=== PATIENT | female | born 1990 | race Caucasian/White ===

== ENCOUNTER 2021-12-21 15:21 | Emergency (ER) | payer MEDICAID, SELFPAY ==
[2021-12-21 15:40] VITALS: BP 101/69; PULSE 114; RESP 20; TEMP 37.1; O2SAT 97; BMI 35.5
[2021-12-21 15:52] VITALS: BP 101/69; PULSE 114; RESP 20; TEMP 37.1; O2SAT 97
--- NOTE | 2021-12-21 15:54 | HMH.EDUTC ---
[facility] Disposition Clinical Impression: Exposure to COVID-19 virus, Viral upper respiratory tract infection Disposition: Home, Self-Care Condition on Discharge: Good Instructions: DI for COVID-19 (Suspected or Confirmed ), Preventing the Spread of Coronavirus Discharge Instructions Additional Instructions: *Monitor Temp, Over the counter Motrin or Tylenol as directed/as needed Tylenol every 4 hours and Motrin every 6 hours (as long as your family doctor has told you that you can take it) for fever or pain. and straight to ER if unable to lower temp less than 101.0 after medication given *Warm salt water gargles may help to soothe the throat *Throat Lozenges *Warm fluids like tea with honey may help to soothe the throat *Sleep elevated *Humidifier/Vaporizer Follow up IMMEDIATELY for new or worsening symptoms or no Noticeable improvement over the next 48-72 hours. 911 for difficulty breathing or swallowing You were tested for today for COVID19 your test result should be back in the next 24-48 hours, you may Check your results on the [facility] My Health portal Make sure to take your Vitamins Vit. C Vit D and Zinc if you can take them Referrals: Justin Claire MD [Primary Care Provider] - As needed Forms: Work/School Release Time of Disposition: 15:59 Medical Decision Making - Kenneth Inquiry Pt receiving controlled substance: No Kenneth was queried for this patient: No Vital Signs: 12/21/21 15:40 12/21/21 15:52 Temperature 98.7 F 98.7 F Temperature Source Oral Pulse Rate 114 H Pulse Rate [Left Brachial] 114 H Respiratory Rate 20 20 Blood Pressure 101/69 L Blood Pressure [Left Arm] 101/69 L Blood Pressure Mean [Left Arm] 79 Blood Pressure Source [Left Arm] Automatic Cuff Blood Pressure Position [Left Arm] Sitting 02 Sat by Pulse Oximetry 97 Oxygen Delivery Method Room Air Orders (Tests/Meds): ORDERS Category Date Time Status Covid-19 Nasal PCR ([facility]) Routine Lab 12/21/21 15:35 Received [facility] HPI - General Stated complaint: exposed, covid test, cough,BLUM Time Seen by Provider: 12/21/21 15:54 Mode of Arrival: Ambulatory Source of Information: Patient Limitations: No Limitations Description of Symptoms (Recalled from Triage Doc. by RN): PATIENT C/O COUGH, HEADACHE, AND SOA X 1 WEEK. RECENTLY EXPOSED TO COVID HEENT Symptoms (Recalled from RN notes): Yes Resp Symptoms (Recalled from RN notes): Yes Skin Symptoms (Recalled from RN notes): No MS Symptoms (Recalled from RN notes): No Functional Status (Recalled from RN notes): WNL - History of Present Illness Provider Complaint: Patient states that two of her children tested positive for COVID on the 2nd and her grandmother tested positive last night states that for the last week on and off she would have bodyaches and not feel well but last night she started feeling achy all over, cough, and not able to breath out of her nose States that she wanted to get tested for COVID to see if she has it now too - Related Data Home Medications Medication Instructions Recorded Confirmed Fluoxetine HCl [Prozac] 30 mg PO DAILY 05/15/19 05/15/19 sulfamethoxazole 800 PO 06/11/19 mg-trimethoprim 160 mg tablet Previous Rx's Medication Instructions Recorded Ketorolac Tromethamine [Toradol 10 mg PO Q6H 5 Days #20 tab 05/15/19 10mg tablet] Allergies Allergy/AdvReac Type Severity Reaction Status Date / Time amoxicillin [AMOXICILLIN] Allergy Mild Verified 06/11/19 14:02 ceftriaxone [From ROCEPHIN] Allergy Mild Verified 06/11/19 14:02 cephalexin [From KEFLEX] Allergy Mild Verified 06/11/19 14:02 DEPRESSION MEDICATION Allergy Unknown I-HIVES Uncoded 06/11/19 14:02 - Worker's Comp Is this a Worker's Comp case?: No [facility] History - Hepatitis A Screen Attestation statement:: This patient has been screened for Hepatitis A risk factors. I have reviewed the patient's past medical history: Yes Medical History: Reports::
== END 2021-12-21 16:05 | disposition home or self-care (01) ==
PROVIDERS: Emergency Provider Nurse Practitioner; PCP Family Medicine
DX: J06.9 Acute upper respiratory infection, unspecified (principal); Z20.822 Contact with and (suspected) exposure to COVID-19
CPT/HCPCS: 99212; C9803; G0463; U0003; U0005

== ENCOUNTER 2024-05-16 20:04 | Emergency (ER) | payer MEDICAID, SELFPAY ==
[2024-05-16 20:05] VITALS: BP 149/73; PULSE 114; RESP 16; TEMP 36.6; O2SAT 100; BMI 40.2
--- NOTE | 2024-05-16 20:08 | HMH.EDGENADL ---
Discharge Plan Disposition Patient Disposition: Home, Self-Care Condition: Good Prescriptions Prescriptions: New lidocaine 5 % adhesive patch,medicated 1 patch topical DAILY Qty: 30 0RF Rx Instructions: leave on most painful area for up to 12 hrs methocarbamol 750 mg tablet 750 mg PO Q6H PRN (Reason: muscle spasm) Qty: 20 0RF prednisone 50 mg tablet 50 mg PO DAILY 5 Days Qty: 5 0RF No Action fluoxetine 20 MG capsule 30 mg PO DAILY ketorolac 10 MG tablet 10 mg PO Q6H 5 Days Qty: 20 0RF Referrals Follow up/Referrals: Donald Cervantes, PT [Physical Therapist] - See instructions (Sciatica) Paul Han [Primary Care Provider] - See instructions Activity Restrictions/Add. Instructions Additional Instructions/Restrictions: I sent medication to your pharmacy I do not know if it will be open tomorrow but should be available on Wednesday. I have also referred you to physical therapy. Please call on Wednesday to make an appointment. Follow-up with your PCP if you have no improvement change or worsening signs or symptoms or return to the ER as needed. Clinical Impressions Clinical Impression: Sciatica Qualifiers: Laterality: right Qualified Code(s): M54.31 - Sciatica, right side Instructions Patient Instructions: DI for Back Pain With Sciatica Print Language Print Language: [place] Discharge ED Provider: Roe Kendrick General Adult HPI <HARRY Morillo - Last Filed: 05/16/24 20:31> General Chief complaint: Back Pain/Injury Stated complaint: radiating lower back pain soa Time Seen by Provider: 05/16/24 20:08 History of Present Illness HPI narrative: Patient presents for evaluation of low back pain. Patient states that she began having atraumatic back pain when she woke up 3 days ago. It is located in her mid back and certain positions cause it to shoot down her right leg. She denies any loss of bladder or bowel function any numbness tingling loss of muscle function. She is having normal bowel movements eating and drinking normally passing flatus. She denies dysuria or burning hematuria. Related Data Home Medications ?Medication ?Instructions ?Recorded ?Confirmed fluoxetine 20 mg capsule 30 mg PO DAILY Depression 05/15/19 05/15/19 sulfamethoxazole 800 PO 06/11/19 mg-trimethoprim 160 mg tablet Previous Rx's ?Medication ?Instructions ?Recorded ketorolac 10 mg tablet 10 mg PO Q6H 5 days #20 tabs 05/15/19 lidocaine 5 % topical patch 1 patch topical DAILY #30 ea 05/16/24 methocarbamol 750 mg tablet 750 mg PO Q6H PRN muscle spasm #20 05/16/24 tabs prednisone 50 mg tablet 50 mg PO DAILY 5 days #5 tabs 05/16/24 Allergies Allergy/AdvReac Type Severity Reaction Status Date / Time amoxicillin (AMOXICILLIN) Allergy Mild Verified 06/11/19 14:02 ceftriaxone (From ROCEPHIN) Allergy Mild Verified 06/11/19 14:02 cephalexin (From KEFLEX) Allergy Mild Verified 06/11/19 14:02 DEPRESSION MEDICATION Allergy Unknown I-HIVES Uncoded 06/11/19 14:02 PFSH <HARRY Morillo - Last Filed: 05/16/24 20:31> [facility] Disclaimer: The information contained in this section may have been updated after the patient was seen, as this information can be updated by other users. Social History Smoking Status: Current every day smoker alcohol intake: never substance use type: denies use current occupational status: unemployed Travel in the last 8 weeks: None household members: family housing: house Other Medical History Have you received the Flu Vaccine for this season: Yes Have you received the Pneumonia Vaccine: Yes <HARRY Morillo - Last Filed: 05/16/24 20:31> ROS Obtained: Yes Systems reviewed as appropriate & no additional complaints except as documented Physical Exam <HARRY Morillo - Last Filed: 05/16/24 20:31> General General appearance: alert and in no apparent distress Respiratory Respiratory exam: Present normal lung sounds bilaterally Cardiovascular Cardiovascular exam: Present regular rate Neurological Exam Neurological exam: Present alert and oriented X3 Medical Decision Making <HARRY Morillo - Last Filed: 05/16/24 20:31> Medical Records Medical records reviewed: Yes I reviewed the patient's medical records. Screening: Per USPSTF and CDC recommendations, given the prevalence of disease in our region, it is our hospital?s policy to screen for HIV and viral Hepatitis for all patients aged 18 and over and those with ongoing risk factors. Kenneth Inquiry Pt receiving controlled substance: No Vital Signs: 05/16/24 20:05 Temperature 97.9 F Temperature Source Oral Pulse Rate [Right Radial] 114 H Respiratory Rate 16 Blood Pressure [Right Arm] 149/73 H Blood Pressure Mean [Right Arm] 98 Blood Pressure Source [Right Arm] Automatic Cuff Blood Pressure Position [Right Arm] Supine 02 Sat by Pulse Oximetry 100 Oxygen Delivery Method Room Air Orders (Tests/Meds): ED MEDICATIONS Discontinued Medications Generic Name Dose Route Start Last Admin Trade Name Freq PRN Reason Stop Dose Admin Acetaminophen 1,000 mg 05/16/24 20:19 05/16/24 20:29 Acetaminophen 500mg Tab PO 05/16/24 20:20 1,000 mg ONCE ONE Administration Ibuprofen 800 mg 05/16/24 20:19 05/16/24 20:28 Ibuprofen 400 Mg Tablet PO 05/16/24 20:20 800 mg ONCE ONE Administration Lidocaine 1 each 05/16/24 20:19 05/16/24 20:29 Lidocaine 5% Transdermal Patch TP 05/16/24 20:20 1 each ONCE ONE Administration Methocarbamol 500 mg 05/16/24 20:19 05/16/24 20:28 Methocarbamol 500mg Tablet PO 05/16/24 20:20 500 mg ONCE ONE Administration Prednisone 60 mg 05/16/24 20:21 05/16/24 20:28 Prednisone 20mg Tab 0.5 mg/kg (60 mg) 05/16/24 20:22 60 mg PO Administration ONCE ONE Medical Decision Narrative: In summary patient is a 33-year-old female who presents to the emergency department for evaluation of atraumatic low back pain. Patient is initially normotensive 149/73 but slightly tachycardic at 114 breathing 16 times a minute satting at 100% room air upon arrival, afebrile 97.9. Physical exam is remarkable for mild tenderness to palpation over the lumbar and sacroiliac's midline and associated paraspinous musculature with no reproducible sciatic pain on palpation. There is no bony deformity no trauma swelling ecchymosis edema. There is no CVA tenderness to percussion bilaterally. Patient does have full range of motion and normal gait and station is observe her ambulate from the lobby to her room in the ER. Motor and sensory intact. Straight leg raise does not induce a discomfort on the left but does on the right and it is located on the right and shoots down the right leg.. Differential diagnosis includes SI joint dysfunction versus degenerative disc disease versus static nerve irritation etc. Initial workup was considered with labs and imaging however patient has no red flags for any neurologic deficits or infection thus deferred and lieu of outpatient conservative management and MRI if need be. Initial interventions include Tylenol ibuprofen Lidoderm and Robaxin along with first dose of prednisone. I had interactive discussion with the patient regarding her presentation my diagnosis management and treatment options risks and benefits of those. Via patient directed decision making and discharge she is comfortable going home with prescription for Lidoderm prednisone and Robaxin with referral to physical therapy for management and referral back to her PCP for ongoing management and potential referral to other clinicians if need be. <Roe Kendrick MD - Last Filed: 05/16/24 20:35> Vital Signs: 05/16/24 20:05 Temperature 97.9 F Temperature Source Oral Pulse Rate [Right Radial] 114 H Respiratory Rate 16 Blood Pressure [Right Arm] 149/73 H Blood Pressure Mean [Right Arm] 98 Blood Pressure Source [Right Arm] Automatic Cuff Blood Pressure Position [Right Arm] Supine 02 Sat by Pulse Oximetry 100 Oxygen Delivery Method Room Air Orders (Tests/Meds): ED MEDICATIONS Discontinued Medications Generic Name Dose Route Start Last Admin Trade Name Freq PRN Reason Stop Dose Admin Acetaminophen 1,000 mg 05/16/24 20:19 05/16/24 20:29 Acetaminophen 500mg Tab PO 05/16/24 20:20 1,000 mg ONCE ONE Administration Ibuprofen 800 mg 05/16/24 20:19 05/16/24 20:28 Ibuprofen 400 Mg Tablet PO 05/16/24 20:20 800 mg ONCE ONE Administration Lidocaine 1 each 05/16/24 20:19 05/16/24 20:29 Lidocaine 5% Transdermal Patch TP 05/16/24 20:20 1 each ONCE ONE Administration Methocarbamol 500 mg 05/16/24 20:19 05/16/24 20:28 Methocarbamol 500mg Tablet PO 05/16/24 20:20 500 mg ONCE ONE Administration Prednisone 60 mg 05/16/24 20:21 05/16/24 20:28 Prednisone 20mg Tab 0.5 mg/kg (60 mg) 05/16/24 20:22 60 mg PO Administration ONCE ONE Medical Decision Narrative: In summary patient is a 33-year-old female who presents to the emergency department for evaluation of atraumatic low back pain. Patient is initially normotensive 149/73 but slightly tachycardic at 114 breathing 16 times a minute satting at 100% room air upon arrival, afebrile 97.9. Physical exam is remarkable for mild tenderness to palpation over the lumbar and sacroiliac's midline and associated paraspinous musculature with no reproducible sciatic pain on palpation. There is no bony deformity no trauma swelling ecchymosis edema. There is no CVA tenderness to percussion bilaterally. Patient does have full range of motion and normal gait and station is observe her ambulate from the lobby to her room in the ER. Motor and sensory intact. Straight leg raise does not induce a discomfort on the left but does on the right and it is located on the right and shoots down the right leg.. Differential diagnosis includes SI joint dysfunction versus degenerative disc disease versus static nerve irritation etc. Initial workup was considered with labs and imaging however patient has no red flags for any neurologic deficits or infection thus deferred and lieu of outpatient conservative management and MRI if need be. Initial interventions include Tylenol ibuprofen Lidoderm and Robaxin along with first dose of prednisone. I had interactive discussion with the patient regarding her presentation my diagnosis management and treatment options risks and benefits of those. Via patient directed decision making and discharge she is comfortable going home with prescription for Lidoderm prednisone and Robaxin with referral to physical therapy for management and referral back to her PCP for ongoing management and potential referral to other clinicians if need be. I was consulted by the FELICE, and we discussed the complexity of the problems being addressed. I approved the treatment and management plan for this patient's care in the Emergency Department, thus performing a substantive portion of the medical decision making. Roe Kendrick MD Critical Care <HARRY Morillo - Last Filed: 05/16/24 20:31> Critical Care Time Critical Care Time: No
[2024-05-16] MEDS: METHOCARBAMOL 500MG TABLET 500 MG PO (20:28)
[2024-05-16] MEDS: IBUPROFEN 400 MG TABLET 800 MG PO (20:28)
[2024-05-16] MEDS: predniSONE 20MG TAB 60 MG PO (20:28)
[2024-05-16] MEDS: LIDOCAINE 5% TRANSDERMAL PATCH 1 EACH TP (20:29)
[2024-05-16] MEDS: ACETAMINOPHEN 500MG TAB 1000 MG PO (20:29)
[2024-05-16 20:47] VITALS: BP 128/72; PULSE 72; RESP 16; TEMP 36.6; O2SAT 98
== END 2024-05-16 20:48 | disposition home or self-care (01) ==
PROVIDERS: Emergency Provider Emergency Medicine; PCP Family Medicine
DX: M54.30 Sciatica, unspecified side (principal); M54.50 Low back pain, unspecified; R06.02 Shortness of breath
CPT/HCPCS: 99283